=== PATIENT | male | born 1990 | race American Indian/Alaskan Native ===

== ENCOUNTER 2016-10-19 13:00 | Emergency (ER) | payer OTHER ==
[2016-10-19 13:08] VITALS: BP 124/70
--- NOTE | 2016-10-19 15:00 | Emergency Department Report ---
HPI - General Chief Complaint: Extremity Injury, Upper Time Seen by Provider: 10/19/16 14:38 - HPI HPI: Patient is a 26-year-old male presents to ED complaining of left thumb pain since he injured his thumb about 4 months ago at work. Patient states he's been to 2 facilities since the injury who had done x-rays with normal findings patient also states he is getting therapy from a chiropractor but is still having pain with movement of the thumb. Patient states he is one of brace since injury and has not had total relief. Patient states he still has throbbing aching pain in thumb. He denies fevers/chills/nausea/vomiting/abdominal pain/shortness of breath as chest pain or urinary problems. ED Past Medical Hx - Past Medical History Previous Medical History?: Yes Additional medical history: lupus--"been tested; no tx" - Surgical History Past Surgical History?: Yes Additional Surgical History: knee surgery age 7 - Social History Smoking Status: Never Smoker Substance Use Type: None - Medications Home Medications: Home Medications Medication Instructions Recorded Confirmed Last Taken Type Azithromycin [Zithromax] 500 mg PO QDAY #3 tablet 05/14/14 Unknown Rx traMADol [Ultram] 50 mg PO Q6HR PRN #10 tablet 05/14/14 Unknown Rx Cyclobenzaprine [Flexeril] 10 mg PO QHS PRN #20 tablet 10/19/16 Unknown Rx Ibuprofen [Motrin] 800 mg PO Q8HR PRN #30 tablet 10/19/16 Unknown Rx ED Review of Systems ROS: Stated complaint: LT THUMB CHECK Other details as noted in HPI Constitutional: denies: chills, fever Eyes: denies: eye pain, eye discharge, vision change ENT: denies: ear pain, throat pain Respiratory: denies: cough, shortness of breath, wheezing Cardiovascular: denies: chest pain, palpitations Endocrine: no symptoms reported Gastrointestinal: denies: abdominal pain, nausea, diarrhea Genitourinary: denies: urgency, dysuria Musculoskeletal: arthralgia. denies: back pain, joint swelling Skin: denies: rash, lesions Neurological: denies: headache, weakness, paresthesias Psychiatric: denies: anxiety, depression Hematological/Lymphatic: denies: easy bleeding, easy bruising Physical Exam - Physical Exam Vital Signs: Vital Signs 10/19/16 13:04 Temperature 98.5 F Pulse Rate 81 Respiratory 16 Rate Blood Pressure 124/70 O2 Sat by Pulse 98 Oximetry Physical Exam: GENERAL: Alert and oriented x3, no apparent distress, Normal Gait, atraumatic. HEAD: Head is normocephalic and a-traumatic. LUNGS: Symetrical with respiration, No wheezing, no rales or crackles, CTAB. HEART: S1, S2 present, regular rate and rhythm without murmur, no rubs, no gallops. EXTREMITIES/MUSCULOSKELETAL: No cyanosis, clubbing, rash, lesions or edema. Full ROM bilaterally. UE Pulses 2+ bilaterally. UE 5+ strength bilaterally, all finger joints are intact. Nontender to palpation of the thumb and hand. Patient is unable to extend first of third digit without slight pain, no ecchymosis, no erythema, no swelling. NEUROLOGIC: The patient is cooperative with no focal neurologic deficits. Cranial nerves II through XII are grossly intact. Normal speech. SKIN: Warm and dry, No lesions, No ulceration or induration present. ED Course Vital Signs 10/19/16 13:04 Temperature 98.5 F Pulse Rate 81 Respiratory 16 Rate Blood Pressure 124/70 O2 Sat by Pulse 98 Oximetry ED Medical Decision Making - Medical Decision Making 26-year-old male presents with arthralgia of the left thumb. ED course: Discussed with patient injuries can heal for months Discussed with him to continue seen his chiropractor therapy and to follow-up with a primary care physician for possibly MRI of the hand if pain continues. Discussed heat therapy 3 times a day. Discussed course and symptoms return to ED. Vital signs are normal patient is in no acute distress. Critical care attestation.: If time is entered above; I have spent that time in minutes in the direct care of this critically ill patient, excluding procedure time. ED Disposition Clinical Impression: Arthralgia Qualifiers: Joint pain location: hand Laterality: left Qualified Code(s): M25.542 - Pain in joints of left hand Disposition: - TO HOME OR SELFCARE Is pt being admited?: No Does the pt Need Aspirin: No Condition: Stable Instructions: Arthralgia (ED) Prescriptions: Cyclobenzaprine [Flexeril] 10 mg PO QHS PRN #20 tablet PRN Reason: Muscle Spasm Ibuprofen [Motrin] 800 mg PO Q8HR PRN #30 tablet PRN Reason: Pain Referrals: PRIMARY CARE, [Primary Care Provider] - 3-5 Days CHRISTA DEL ANGEL MD [Staff Physician] - 3-5 Days DELVIN MULLER MD [Staff Physician] - 3-5 Days [facility] [Outside] - 3-5 Days [facility] [Outside] - 3-5 Days Forms: Accompanied Note, Work/School Release Form(ED) Time of Disposition: 15:10
== END 2016-10-19 15:24 | disposition home or self-care (01) ==
LOC: ED 13:00
DX: M79.645 Pain in left finger(s) (principal); Z98.890 Other specified postprocedural states
CPT/HCPCS: 99282